=== PATIENT | female | born 1950 | race African-American/Black ===

== ENCOUNTER → 2024-09-09 | Day surgery (SDC) | payer MEDICARE ==
[~2024-09-09] MED LIST: AMLODIPINE BESYL5 MG PO; ASPIRIN CHEW81 MG PO; ATORVASTATIN CA20 MG PO; CALCIUM ACETAT667 MG PO; DIOVAN80 MG PO; ELIQUIS5 MG PO; FENTANYL CITRATE/PF 100MCG/2 ML INJ ONE; FISH OIL 1,0001 EAC7; HYDROCHLOROTHIA25 MG; LIDOCAINE HCL 2% LOCAL INJ 5 ML SDV VIAL INJ ONE; METOPROLOL SUCC25 MG PO; MULTI-VITAMIN1 EACH PO; NEURONTIN300 MG PO; POTASSIUM99 M1; PROPOFOL IV EMULSION 10 MG/ML 20 ML VIAL ONE; SERTRALINE HCL50 MG PO; VESICARE5 MG PO; VITAMIN C1000 MG PO; ZINC30 MG
[2024-09-09 13:11] VITALS: BP 134/92; PULSE 82; RESP 17; O2SAT 95
[2024-09-09] MEDS: LACTATED RINGER'S 1,000 ML ONE (14:37)
== END | disposition home or self-care (01) ==
LOC: OR 12:30
PROVIDERS: ATTEND Internal Medicine Gastroenterology
DX: Z12.11 Encounter for screening for malignant neoplasm of colon (principal); D12.0 Benign neoplasm of cecum; D12.3 Benign neoplasm of transverse colon; D12.4 Benign neoplasm of descending colon; K29.50 Unspecified chronic gastritis without bleeding; K22.89 Other specified disease of esophagus; R13.10 Dysphagia, unspecified; K44.9 Diaphragmatic hernia without obstruction or gangrene; K57.30 Diverticulosis of large intestine without perforation or abscess without bleeding; K64.8 Other hemorrhoids; I48.91 Unspecified atrial fibrillation; I10 Essential (primary) hypertension; J45.909 Unspecified asthma, uncomplicated; Z99.81 Dependence on supplemental oxygen; Z79.02 Long term (current) use of antithrombotics/antiplatelets; Z79.82 Long term (current) use of aspirin; Z79.899 Other long term (current) drug therapy; Z86.73 Personal history of transient ischemic attack (TIA), and cerebral infarction without residual deficits
CPT/HCPCS: 43239; 45384; 45385; 88305; 93005; J2003; J2704; J7121; 45378

== ENCOUNTER → 2024-12-19 | Outpatient (REF) | payer MEDICARE ==
[~2024-12-19] MED LIST changes: -FENTANYL CITRATE/PF 100MCG/2 ML INJ ONE; -LIDOCAINE HCL 2% LOCAL INJ 5 ML SDV VIAL INJ ONE; -PROPOFOL IV EMULSION 10 MG/ML 20 ML VIAL ONE
== END ==
LOC: DX 11:15
PROVIDERS: ATTEND Nurse Practitioner Family
DX: R13.10 Dysphagia, unspecified (principal)
CPT/HCPCS: 74230